=== PATIENT | male | born 1970 | race Caucasian/White ===

== ENCOUNTER 2019-07-21 18:15 | Observation (INO) | payer OTHER ==
[~2019-07-21] VITALS: Ht 175.2 cm; Wt 131.7 kg
[2019-07-21 18:21] VITALS: BP 172/98
[2019-07-21 18:32] VITALS: BP 172/98
[2019-07-21 18:56] VITALS: BP 172/96
[2019-07-21 19:15] LABS: BASO % 0.3 % (0.0-1.0); EOS # 0.2 10*3/uL (0.0-0.4); EOS % 1.5 % (1.0-4.0); HEMATOCRIT 43.8 % (42.0-52.0); LYMPH # 2.1 10*3/uL (1.3-4.4); LYMPH % 20.5 % (27.0-41.0); MEAN CELL VOLUME 96.9 fl (80.0-94.0); MEAN CORPUSCULAR HGB 33.2 pg (27.0-31.0); MEAN CORPUSCULAR HGB CONC 34.2 g/dl (33.0-37.0); MEAN PLATELET VOLUME 9.5 fl (9.6-12.3); MONO # 0.7 10*3/uL (0.1-1.0); NEUT # 7.1 10*3/uL (2.3-7.9); NEUT % 69.7 % (47.0-73.0); PLATELET COUNT AUTOMATED 211 10*3/uL (130-400); RED BLOOD COUNT 4.52 10*6/uL (4.50-5.90); RED CELL DISTRI WIDTH 13.2 % (0-14.5); WHITE BLOOD COUNT 10.1 10*3/uL (4.8-10.8)
[2019-07-21 19:25] LABS: ACT PARTIAL THROMBO TIME 25.5 SECONDS (20.0-32.1); INTERNATIONAL NORM RATIO 0.9 (2.0-3.5)
[2019-07-21 19:31] LABS: ALBUMIN 3.7 gm/dl (3.1-4.5); ALKALINE PHOSPHATASE 95 U/L (45-117); BUN 16 mg/dl (7-24); CHLORIDE 103 mmol/L (98-107); CREATININE 0.96 mg/dL (0.70-1.30); POTASSIUM 3.5 mmol/L (3.5-5.1); SGOT/AST 22 IU/L (3-35); SGPT/ALT 66 U/L (12-78); SODIUM 134 mmol/L (136-145); TOTAL PROTEIN 7.8 gm/dL (6.4-8.2)
[2019-07-21 19:33] LABS: TROPONIN I < 0.015 ng/ml (<0.045)
[2019-07-21 20:20] VITALS: BP 172/98
[2019-07-21 21:35] VITALS: BP 162/88
--- NOTE | 2019-07-21 21:35 | NUR ---
A 49, admitted to 4E, under the services of GRADY Jacques DO with a diagnosis of CHEST PAIN R/O MS, HTN. Chief complaint is HIGH BLOOD PRESSURE. Patient arrived via stretcher from ER. Monitor applied. Initial assessment completed. Vital signs taken and recorded. GRADY JACQUES DO notified of admission to the unit. Orders received. See assessment for past medical history, medications and allergies. Patient and/or family oriented to unit. [facility] visitation policy reviewed. Clothing/patient valuable form completed. ELISHA CISNEROS
[2019-07-21 21:37] VITALS: BP 162/88
[2019-07-21] MEDS ORDERED: VISTARIL25 M2 PO (22:11)
[2019-07-21] MEDS ORDERED: METFORMIN HCL500 M2 PO (22:11)
[2019-07-21] MEDS ORDERED: ZYPREXA10 M1 PO (22:12)
[2019-07-21] MEDS ORDERED: PROZAC40 M1 PO (22:12)
[2019-07-21] MEDS ORDERED: PROZAC20 MG PO (22:12)
[2019-07-21] MEDS ORDERED: ZESTRIL20 MG PO (22:13)
--- NOTE | 2019-07-21 22:20 | NUR ---
MED REC UP TO DATE PER PT RECALL.
--- NOTE | 2019-07-21 22:20 | NUR ---
PT WANTS FLU SHOT PRIOR TO DISCHARGE.
[2019-07-22] VITALS: BP 146/88
--- NOTE | 2019-07-22 00:01 | NUR ---
SPOKE TO REGARDING PT'S REQUEST FOR NICOTINE PATCH. NEW ORDERS RECEIVED.
[2019-07-22 06:37] LABS: BASO % 0.5 % (0.0-1.0); EOS # 0.2 10*3/uL (0.0-0.4); HEMATOCRIT 46.5 % (42.0-52.0); HEMOGLOBIN 15.4 g/dl (14.0-18.0); LYMPH # 2.3 10*3/uL (1.3-4.4); MEAN CELL VOLUME 97.1 fl (80.0-94.0); MEAN CORPUSCULAR HGB 32.2 pg (27.0-31.0); MEAN CORPUSCULAR HGB CONC 33.1 g/dl (33.0-37.0); MEAN PLATELET VOLUME 9.4 fl (9.6-12.3); MONO # 0.7 10*3/uL (0.1-1.0); MONO % 8.6 % (3.0-9.0); NEUT # 4.9 10*3/uL (2.3-7.9); NEUT % 60.3 % (47.0-73.0); PLATELET COUNT AUTOMATED 198 10*3/uL (130-400); RED BLOOD COUNT 4.79 10*6/uL (4.50-5.90); RED CELL DISTRI WIDTH 13.2 % (0-14.5); WHITE BLOOD COUNT 8.2 10*3/uL (4.8-10.8)
[2019-07-22 07:06] LABS: BUN 15 mg/dl (7-24); CHLORIDE 104 mmol/L (98-107); SODIUM 137 mmol/L (136-145); TRIGLYCERIDES 395 mg/dl (<150); VLDL CHOLESTEROL 79 mg/dL (6-40)
[2019-07-22 07:11] LABS: CHOLESTEROL 216 mg/dL (<200); CREATININE 0.96 mg/dL (0.70-1.30); HDL CHOLESTEROL 49 mg/dl (40-60); LDL CHOLESTEROL 88 mg/dL (9-159); PHOSPHOROUS 3.3 mg/dL (2.5-4.9)
[2019-07-22 07:56] VITALS: BP 164/90
[2019-07-22 08:00] VITALS: BP 154/98
--- NOTE | 2019-07-22 09:00 | NUR ---
Physical Therapy Technician in to talk to patient. Patient states lives at home with girlfriend. There are no steps in the home. Physician: darius salinas Pharmacy: [facility] health services: none Patient's level of ADLs: INDEPENDENT Patient has working utilities: all working DME: none Follow-up physician's appointment after d/c: will be made by hospitalist nurse director upon discharge Does patient want to access PORTAL?: no Discharge plan discussed with patient, girlfriend present, he lives at home with girlfriend, he states he is independent in adls and ambulation, he states he will return home when medically stable and denies any home needs, case management will follow. ADRIANA CHOU
[2019-07-22] MEDS ORDERED: METFORMIN850 MG PO (09:01)
[2019-07-22] MEDS ORDERED: LIPITOR20 MG PO (09:01)
[2019-07-22] MEDS ORDERED: LISINOPRIL40 MG PO (09:01)
[2019-07-22] MEDS ORDERED: NICOTINE PATCH1 EAC2 TD (09:02)
--- NOTE | 2019-07-22 09:39 | NUR ---
Discharge instructions reviewed with patient/family. Patient receptive and verbalizes understanding. Follow-up care understood. Written instructions given to patient/family. iv removed, tele removed. pt has no questions on discharge. decline wheelchair. ALEKSANDAR KIM
== END 2019-07-22 09:39 | disposition home or self-care (01) ==
LOC: ED 18:15 → EDHOLD 20:27 → 4E 20:27 → EDHOLD 20:27 → 4E 21:08
PROVIDERS: Nurse Practitioner Family; Student in an Organized Health Care Education/Training Program; ADMIT Family Medicine
DX: R07.89 Other chest pain (principal); I10 Essential (primary) hypertension; D75.89 Other specified diseases of blood and blood-forming organs; E87.1 Hypo-osmolality and hyponatremia; E11.65 Type 2 diabetes mellitus with hyperglycemia; E83.41 Hypermagnesemia; E66.01 Morbid (severe) obesity due to excess calories; F43.10 Post-traumatic stress disorder, unspecified; F41.9 Anxiety disorder, unspecified; E78.5 Hyperlipidemia, unspecified; I16.1 Hypertensive emergency; F17.200 Nicotine dependence, unspecified, uncomplicated; Z68.43 Body mass index [BMI] 50.0-59.9, adult

== ENCOUNTER 2020-09-01 21:04 | Emergency (ER) | payer OTHER ==
[~2020-09-01 21:04] MED LIST: LIPITOR20 MG PO; LISINOPRIL40 MG PO; METFORMIN HCL500 M2 PO; METFORMIN850 MG PO; NICOTINE PATCH1 EAC2 TD; PROZAC20 MG PO; PROZAC40 M1 PO; VISTARIL25 M2 PO; ZESTRIL20 MG PO; ZYPREXA10 M1 PO
[2020-09-01 21:27] LABS: BASO % 0.4 % (0.0-1.0); EOS # 0.1 10*3/uL (0.0-0.4); EOS % 1.4 % (1.0-4.0); HEMATOCRIT 44.8 % (42.0-52.0); LYMPH # 2.4 10*3/uL (1.3-4.4); LYMPH % 26.4 % (27.0-41.0); MEAN CELL VOLUME 95.1 fl (80.0-94.0); MEAN CORPUSCULAR HGB 32.5 pg (27.0-31.0); MEAN CORPUSCULAR HGB CONC 34.2 g/dl (33.0-37.0); MEAN PLATELET VOLUME 9.5 fl (9.6-12.3); MONO # 0.6 10*3/uL (0.1-1.0); MONO % 6.8 % (3.0-9.0); NEUT # 5.8 10*3/uL (2.3-7.9); NEUT % 64.3 % (47.0-73.0); PLATELET COUNT AUTOMATED 224 10*3/uL (130-400); RED BLOOD COUNT 4.71 10*6/uL (4.50-5.90); RED CELL DISTRI WIDTH 11.9 % (0-14.5); WHITE BLOOD COUNT 9.1 10*3/uL (4.8-10.8)
[2020-09-01 21:39] LABS: ACT PARTIAL THROMBO TIME 24.1 SECONDS (20.0-32.1); INTERNATIONAL NORM RATIO 0.9 (2.0-3.5)
[2020-09-01 21:44] LABS: ALBUMIN 3.6 gm/dl (3.1-4.5); ALKALINE PHOSPHATASE 98 U/L (45-117); BUN 7 mg/dl (7-24); CHLORIDE 105 mmol/L (98-107); CREATININE 0.83 mg/dL (0.70-1.30); POTASSIUM 3.3 mmol/L (3.5-5.1); SGOT/AST 42 IU/L (3-35); SGPT/ALT 104 U/L (12-78); SODIUM 138 mmol/L (136-145); TOTAL PROTEIN 7.7 gm/dL (6.4-8.2)
[2020-09-01 21:49] LABS: TROPONIN I < 0.015 ng/ml (<0.045)
== END 2020-09-01 23:08 | disposition home or self-care (01) ==
LOC: ED 21:04
PROVIDERS: Emergency Medicine
DX: F41.0 Panic disorder [episodic paroxysmal anxiety] (principal); F41.9 Anxiety disorder, unspecified; F17.200 Nicotine dependence, unspecified, uncomplicated; Z79.899 Other long term (current) drug therapy; Z88.8 Allergy status to other drugs, medicaments and biological substances

== ENCOUNTER → 2024-03-28 | Outpatient (CLI) | payer OTHER | END | disposition home or self-care (01) | LOC: US 02:00 | PROVIDERS: ATTEND Family Medicine | DX: I65.23 Occlusion and stenosis of bilateral carotid arteries (principal); Z86.73 Personal history of transient ischemic attack (TIA), and cerebral infarction without residual deficits; R42 Dizziness and giddiness ==